=== PATIENT | male | born 2005 | race Caucasian/White ===

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

== ENCOUNTER 2024-01-23 14:38 | Emergency (ER) | payer OTHER ==
[2024-01-23 14:53] VITALS: RESP 18; TEMP 99.3
--- NOTE | 2024-01-23 15:22 | ERPHSYRPT ---
- History of Present Illness Time Seen by Provider: 01/23/24 15:19 Historian: patient, family Exam Limitations: no limitations Patient Subjective Stated Complaint: C/O VOMITING TODAY Triage Nursing Assessment: Patient ambulated back to ER without difficulties. He is alert and oriented. No SOB. GIFFORD WNL. No tenderness with abdominal palpation. 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 He could not keep anything down so he came to the emergency room. Patient denies any fever chills diarrhea chest pain headache. Patient also denies any blood in the stool or urine. Timing/Duration: today Quality: cramping Abdominal Pain Onset Location: epigastric, periumbilical Pain Radiation: no radiation Severity of Pain-Max: moderate Severity of Pain-Current: moderate Associated Symptoms: vomiting Previous symptoms: no prior history Allergies/Adverse Reactions: No Known Drug Allergies Allergy (Verified 01/23/24 14:42) Home Medications: Amoxicillin/Potassium Clav [Amox-Clav 500-125 mg Tablet] 1 tab PO QID 01/23/24 [History] Famotidine 40 mg PO DAILY 01/23/24 [History] Sertraline HCl 50 mg [Zoloft 50 mg Tablet] 50 mg PO DAILY 01/23/24 [History] Hx Tetanus, Diphtheria Vaccination/Date Given: Yes Hx Influenza Vaccination/Date Given: No Hx Pneumococcal Vaccination/Date Given: No Immunizations Up to Date: Yes Travel Risk - International Travel Have you traveled outside of the country in past 3 weeks: No - Emerging Infectious Disease Are you exhibiting symptoms associated with any current EIDs: Yes Symptoms: Abdominal Pain, Diarrhea, Vomitting - Review of Systems Constitutional: No Fever, No Chills Eyes: No Symptoms Ears, Nose, & Throat: No Symptoms Respiratory: No Cough, No Dyspnea Cardiac: No Chest Pain, No Edema, No Syncope Abdominal/Gastrointestinal: Abdominal Pain, Nausea, Vomiting, No Diarrhea Genitourinary Symptoms: No Dysuria Musculoskeletal: No Back Pain, No Neck Pain Skin: No Rash Neurological: No Dizziness, No Focal Weakness, No Sensory Changes Psychological: No Symptoms Endocrine: No Symptoms All Other Systems: Reviewed and Negative - Past Medical History Pertinent Past Medical History: No Neurological History: No Pertinent History ENT History: No Pertinent History Cardiac History: No Pertinent History Respiratory History: Asthma Endocrine Medical History: No Pertinent History Musculoskeletal History: No Pertinent History GI Medical History: GERD History: No Pertinent History Psycho-Social History: Anxiety, Depression Male Reproductive Disorders: No Pertinent History - Past Surgical History Past Surgical History: No Neuro Surgical History: No Pertinent History Cardiac: No Pertinent History Respiratory: No Pertinent History Gastrointestinal: No Pertinent History Genitourinary: No Pertinent History Musculoskeletal: No Pertinent History Male Surgical History: No Pertinent History - Social History Smoking Status: Current every day smoker How long have you smoked: "AWHILE" Exposure to second hand smoke: No Drug Use: marijuana Patient Lives Alone: No - Social Determinants of Health Will the patient participate in the screening: Declined to provide - Nursing Vital Signs Nursing Vital Signs: Initial Vital Signs Blood Pressure 134/74 01/23/24 14:43 Pain Scale Pain Intensity 5 - Physical Exam General Appearance: no apparent distress, alert Eye Exam: PERRL/EOMI, eyes nml inspection Ears, Nose, Throat Exam: normal ENT inspection, pharynx normal, moist mucous membranes Neck Exam: normal inspection, non-tender, supple, full range of motion Respiratory Exam: normal breath sounds, lungs clear, No respiratory distress Cardiovascular Exam: regular rate/rhythm, normal heart sounds Gastrointestinal/Abdomen Exam: soft, normal bowel sounds, tenderness, No distention, No mass, No guarding, No rebound Back Exam: normal inspection, normal range of motion, No CVA tenderness, No vertebral tenderness Extremity Exam: normal inspection, normal range of motion, pelvis stable Neurologic Exam: alert, oriented x 3, cooperative, normal mood/affect, nml cerebellar function, sensation nml, No motor deficits Skin Exam: normal color, warm, dry SpO2: 99 - Course Nursing assessment & vital signs reviewed: Yes - CT Exams Abdomen/Pelvis CT Interpretation: Tele-radiologist Report Ordered Tests: Active Orders 24 hr Category Date Time Status ABDOMEN AND PELVIS W CONTRAST [CT] Stat Exams 01/23/24 15:18 Completed AMYLASE Stat Lab 01/23/24 15:25 Completed CBC W DIFF Stat Lab 01/23/24 15:25 Completed CMP Stat Lab 01/23/24 15:25 Completed LIPASE Stat Lab 01/23/24 15:25 Completed UA W/RFX UR CULTURE Stat Lab 01/23/24 15:18 Ordered Urine Triage Profile Stat Lab 01/23/24 15:18 Ordered Medication Summary Discontinued Medications Generic Name Dose Route Start Last Admin Trade Name Sarah PRN Reason Stop Dose Admin Sodium Chloride 1,000 mls @ 999 mls/hr 01/23/24 15:17 01/23/24 16:34 Sodium Chloride 0.9% 1000 Ml IV 01/23/24 16:17 Infused .Q1H1M STA Infusion Sodium Chloride Confirm 01/23/24 15:31 Sodium Chloride 0.9% 1000 Ml Administered 01/23/24 15:32 Dose 1,000 mls @ ud .ROUTE .STK-MED ONE Ondansetron HCl 4 mg 01/23/24 15:17 01/23/24 15:32 Ondansetron Hcl 4 Mg/2 Ml Vial IV 01/23/24 15:18 4 mg STAT ONE Administration Ondansetron HCl Confirm 01/23/24 15:31 Ondansetron Hcl 4 Mg/2 Ml Vial Administered 01/23/24 15:32 Dose 4 mg .ROUTE .STK-MED ONE Pantoprazole Sodium 40 mg 01/23/24 15:17 01/23/24 15:32 Pantoprazole 40 Mg Vial IV 01/23/24 15:18 40 mg STAT ONE Administration Pantoprazole Sodium Confirm 01/23/24 15:31 Pantoprazole 40 Mg Vial Administered 01/23/24 15:32 Dose 40 mg IV .STK-MED ONE Lab/Rad Data: Laboratory Result Diagrams 01/23/24 15:25 01/23/24 15:25 Laboratory Results 01/23/24 01/23/24 Range/Units 15:25 15:25 WBC 10.7 H (4.23-9.07) x10^3/uL RBC 4.86 (4.63-6.08) x10^6/uL Hgb 15.0 (13.7-17.5) g/dL Hct 41.8 (40.1-51.0) % MCV 86.0 (79.0-92.2) fL MCH 30.9 (25.7-32.2) pg MCHC 35.9 (32.3-36.5) g/dL RDW 12.0 (11.6-14.4) % Plt Count 194 (163-337) x10^3/uL MPV 10.4 (9.4-12.4) fL Gran % 91.8 H (34.0-67.9) % Immature Gran % (Auto) 0.4 (0.001-0.429) % Nucleat RBC Rel Count 0.0 (0.00-0.2) % Eos # (Auto) 0.11 (0.04-0.54) x10^3/uL Immature Gran # (Auto) 0.04 H (0.001-0.031) x10^3u/L Absolute Lymphs (auto) 0.39 L (1.32-3.57) x10^3/uL Absolute Monos (auto) 0.32 (0.30-0.82) x10^3/uL Absolute Nucleated RBC 0.00 (0.00-0.012) x10^3u/L Lymphocytes % 3.7 L (21.8-53.1) % Monocytes % 3.0 L (5.3-12.2) % Eosinophils % 1.0 (0.8-7.0) % Basophils % 0.1 L (0.2-1.2) % Absolute Granulocytes 9.81 H (1.78-5.38) x10^3/uL Basophils # 0.01 (0.01-0.08) x10^3/uL Sodium 139 (135-145) mmol/L Potassium 4.0 (3.5-5.1) mmol/L Chloride 101 (98-107) mmol/L Carbon Dioxide 28 (22-30) mmol/L Anion Gap 13.4 (5-15) MEQ/L BUN 10 (9-20) mg/dL Creatinine 0.73 (0.66-1.25) mg/dL Estimated GFR 132.8 ML/MIN Glucose 107 H (74-106) mg/dL Calcium 9.3 (8.4-10.2) mg/dL Total Bilirubin 0.60 (0.2-1.3) mg/dL AST 31 (17-59) U/L ALT 25 (0-50) U/L Alkaline Phosphatase 87 (38-126) U/L Serum Total Protein 7.6 (6.3-8.2) g/dL Albumin 4.8 (3.5-5.0) g/dL Amylase 96 (30-110) U/L Lipase 55 (23-300) U/L CLINICAL HISTORY: epigastric pain, periumbilical area COMPARISON: None. TECHNIQUE: CT of the abdomen was performed with intravenous contrast, with the following protocol: axial images, and reconstructed coronal and sagittal images. contrast- enhanced images acquired in arterial and venous phases. 80cc of isovue 370 was administered using automated injection techniques. One of the following dose reduction techniques was utilized for this exam: Automated exposure control, adjustment of the mA and/or kV according to patient size, and use of iterative reconstruction. DLP: 304.7 mGy-cm, CTDI: 6.04 mgy. FINDINGS: Liver: Normal in size, shape, and density. No focal lesions, cysts, or masses were identified. Gallbladder and Biliary System: The gallbladder is normal in size and shape. No wall thickening, pericholecystic fluid, or gallstones were identified. Pancreas: Pancreatic head, body, and tail are visualized and appear normal in size and density. No pancreatic masses, cysts, or calcifications were noted. PatientID: [id number] Patient Name: HERRERA HIGH Exam Date: 01/23/2024 Procedure: ABDOMEN AND PELVIS W CONTRAST page 1 of 2 Spleen: Normal in size, shape, and density. No splenic lesions or masses were identified. Kidneys and Adrenal Glands: Both kidneys are normal in size, shape, and position. Cortical thickness is within normal limits. No renal calculi or hydronephrosis. Adrenal glands are unremarkable. Appendix: The appendix is normal in size without barbara appendiceal fat stranding and witho ut an appendicolith. No evidence of appendiceal abscess or perforation. Abdominal Aorta and Vessels: The abdominal aorta and major branches are patent without evidence of an aneurysm or significant atherosclerosis. Pelvis: Urinary Bladder: Normal in contour and wall thickness. No intraluminal lesions. Peritoneal and Retroperitoneal Structures: No free fluid or abnormal fluid collections were identified within the abdomen or pelvis. No lymphadenopathy was noted. Bowel: Bowel loops are collapsed. pelvic segments show a High-density material likely ingested material. Bones and Soft Tissues: Pelvic bones and soft tissues are unremarkable. No fractures or abnormal masses were identified. IMPRESSION: No acute intra-abdominal abnormalities. - Progress Progress: improved Counseled pt/family regarding: lab results, diagnosis, need for follow-up, rad results Medical Desision Making - Independent Historian Additional History obtained from: Family - Diagnostic Testing Diagnostic test were ordered, analyzed, and reviewed by me: Yes Radiological Interpretation: Teleradiologist Report - Risk of complications Minimal Risk: Minimal risk of morbidity - Departure Departure Disposition: Home Clinical Impression: Abdominal pain Qualifiers: Abdominal location: epigastric Qualified Code(s): R10.13 - Epigastric pain Condition: Stable Critical Care Time: No Referrals: AVNI SCHWARZ, DIRECTOR OF EMERGENCY NURSING [Nurse Practioner] - Follow up/PCP as directed Instructions: Abdominal Pain, Adult ED, Abdominal pain in adults - Discharge instructions Additional Instructions: Discharge/Care Plan HERRERA HIGH was seen on 01/23/24 in the Emergency Room. The patient was counseled regarding Diagnosis,Lab results, Imaging studies, need for follow up and when to return to the Emergency Room. Prescriptions given: Discharge Note I have spoken with the patient and/or caregivers. I have explained the patient's condition, diagnosis and treatment plan based on the information available to me at this time. I have answered the patient's and/or caregiver's questions and addressed any concerns. The patient and/or caregivers have as good understanding of the patient's diagnosis, condition and treatment plan as can be expected at this point. The vital signs have been stable. The patient's condition is stable and appropriate for discharge from the emergency department. The patient will pursue further outpatient evaluation with the primary care physician or other designated or consulting physician as outlined in the discharge instructions. The patient and/or caregivers are agreeable to this plan of care and follow-up instructions have been explained in detail. The patient and/or caregivers have received these instruction. The patient/and or caregivers are aware that any significant change in condition or worsening of symptoms should prompt an immediate return to this or the closest emergency department or call 911. HERRERA HIGH was seen on 01/23/24 n the Emergency Room. At that time you were treated for an emergent condition, during your visit Laboratory, Radiology and/or other procedures may have been ordered. It is very important that you follow-up with your Primary Care Physician FRANCISCO KURTZ within the next 24-48 hours to review your Emergency Room visit and the final results of testing that was ordered. Some test results such as Urine Cultures, Blood Cultures, and other cultures if ordered will not be finalized for 24-48 hours. If you do not have a Primary Care Provider please call the medical records department at [phone] ext [phone] to obtain a copy of your results or you may sign into our patient portal to obtain these results by visiting us @ [email or web address] and completing the following steps: 1. Click on the Patient Portal link 2. Click the Patient Self Enrollment Link to complete the enrollment form and entering your 3. Once the enrollment form is completed you will receive an email with a temporary ID and password at the email address you provided. 4. Next choose a user name and password. Your user name must be at least 4 characters long and your password must be at least 4 characters long. 5. Choose a security question from the list and provide your answer to the question. If you already have signed into the Health Portal you may access your Health Care Information 01/09 by the following steps: 1. Login to our website @ [email or web address] 2. Enter your original user name and password. FAQS The [facility] Health Portal is an online tool that contains your Lab Results, R adiology Reports, Visit History, Discharge Instructions and Health Summary Lab and Radiology Results will not be available for 72 hours on the portal. The Portal is a secure site, passwords are encryted and URLs are re-written so they cannot be copied and pasted. You and authorized family members are the only ones who can access your Portal. Also there is a timeout feature that protects your information if you leave the Portal page open. If you have technical difficulty please use the Contact Us link on the page this will allow you to submit any questions you have regarding the Portal or you may contact the Medical Record Department at [phone] ext [phone]. Prescriptions: Ondansetron ODT 4 MG [Zofran Odt 4 mg] 4 mg PO Q6H PRN PRN #10 tablet PRN Reason: Nausea/Vomiting
[2024-01-23] MEDS ORDERED: Sodium Chloride 0.9% 1000 ML 1,000 ML ONE (15:31)
[2024-01-23] MEDS ORDERED: Zofran 4 MG/2 ML VIAL ONE (15:31)
[2024-01-23] MEDS ORDERED: PROTONIX 40 MG IV IV ONE (15:31)
[2024-01-23] MEDS: Sodium Chloride 0.9% 1000 ML 1,000 ML IV STA (15:32)
[2024-01-23] MEDS: Zofran 4 MG/2 ML VIAL IV ONE (15:32)
[2024-01-23] MEDS: PROTONIX 40 MG IV IV ONE (15:32)
[2024-01-23 15:36] LABS: Absolute Neutrophil Ct (ANC) 9.81 x10^3/uL (1.78-5.38); BASOPHIL % 0.1 % (0.2-1.2); Basophil (Absolute #) 0.01 x10^3/uL (0.01-0.08); Eosinophil (Absolute #) 0.11 x10^3/uL (0.04-0.54); Hematocrit 41.8 % (40.1-51.0); IMMATURE GRAN # 0.04 x10^3u/L (0.001-0.031); IMMATURE GRAN % 0.4 % (0.001-0.429); Lymphocyte (Absolute #) 0.39 x10^3/uL (1.32-3.57); Lymphocytes % 3.7 % (21.8-53.1); Mean Corpuscular Hemoglobin 30.9 pg (25.7-32.2); Mean Corpuscular Hgb Concent. 35.9 g/dL (32.3-36.5); Mean Platelet Volume 10.4 fL (9.4-12.4); Monocyte (Absolute #) 0.32 x10^3/uL (0.30-0.82); Neutrophil % 91.8 % (34.0-67.9); Platelet Count 194 x10^3/uL (163-337); Red Blood Count 4.86 x10^6/uL (4.63-6.08); White Blood Count 10.7 x10^3/uL (4.23-9.07)
[2024-01-23 15:50] LABS: ALBUMIN 4.8 g/dL (3.5-5.0); ANION GAP 13.4 MEQ/L (5-15); BILIRUBIN,TOTAL 0.6 mg/dL (0.2-1.3); Calcium 9.3 mg/dL (8.4-10.2); Creatinine 1 0.73 mg/dL (0.66-1.25); EST GLOMERULAR FILTRATION RATE 132.8 ML/MIN; Total Protein 7.6 g/dL (6.3-8.2)
[2024-01-23 16:43] VITALS: BP 106/60; PULSE 88
--- NOTE | 2024-01-23 17:09 | XRAY ---
CLINICAL HISTORY: epigastric pain, periumbilical area COMPARISON: None. TECHNIQUE: CT of the abdomen was performed with intravenous contrast, with the following protocol: axial images, and reconstructed coronal and sagittal images. contrast-enhanced images acquired in arterial and venous phases. 80cc of isovue 370 was administered using automated injection techniques. One of the following dose reduction techniques was utilized for this exam: Automated exposure control, adjustment of the mA and/or kV according to patient size, and use of iterative reconstruction. DLP: 304.7 mGy-cm, CTDI: 6.04 mgy. FINDINGS: Liver: Normal in size, shape, and density. No focal lesions, cysts, or masses were identified. Gallbladder and Biliary System: The gallbladder is normal in size and shape. No wall thickening, pericholecystic fluid, or gallstones were identified. Pancreas: Pancreatic head, body, and tail are visualized and appear normal in size and density. No pancreatic masses, cysts, or calcifications were noted. Spleen: Normal in size, shape, and density. No splenic lesions or masses were identified. Kidneys and Adrenal Glands: Both kidneys are normal in size, shape, and position. Cortical thickness is within normal limits. No renal calculi or hydronephrosis. Adrenal glands are unremarkable. Appendix: The appendix is normal in size without barbara appendiceal fat stranding and without an appendicolith. No evidence of appendiceal abscess or perforation. Abdominal Aorta and Vessels: The abdominal aorta and major branches are patent without evidence of an aneurysm or significant atherosclerosis. Pelvis: Urinary Bladder: Normal in contour and wall thickness. No intraluminal lesions. Peritoneal and Retroperitoneal Structures: No free fluid or abnormal fluid collections were identified within the abdomen or pelvis. No lymphadenopathy was noted. Bowel: Bowel loops are collapsed. pelvic segments show a High-density material likely ingested material. Bones and Soft Tissues: Pelvic bones and soft tissues are unremarkable. No fractures or abnormal masses were identified. IMPRESSION: No acute intra-abdominal abnormalities. Electronically Signed by: Allan Alcala MD. (01/23/2024 17:06:15 EST)
[2024-01-23 17:16] VITALS: O2SAT 99
[2024-01-23 19:02] LABS: Slide Review 1 YES
== END 2024-01-23 17:27 | disposition home or self-care (01) ==
LOC: ED 14:38
DX: R11.10 Vomiting, unspecified (principal); R10.13 Epigastric pain
CPT/HCPCS: 36415; 74177; 80053; 82150; 83690; 85025; 96360; 96374; 96375; 99284; 99285; J2405; Q9967